=== PATIENT | female | born 1970 | race Caucasian/White ===

== ENCOUNTER → 2019-05-07 18:12 | Outpatient (CLI) | payer BC, SELFPAY ==
--- NOTE | ~2019-05-07 | MM_ITS ---
EXAMINATION: MM screening pio BI w alexander HISTORY: Screening mammogram TECHNIQUE: Craniocaudal and mediolateral oblique 3-D tomosynthesis images were obtained and synthetic 2-D images were generated. CAD analysis was submitted and interpreted. COMPARISON: No prior mammogram is available for comparison at this institution. BREAST PARENCHYMAL COMPOSITION: The breasts are heterogeneously dense, which may obscure small masses . FINDINGS: There is no evidence of suspicious mass, calcification, or architectural distortion to sugg est malignancy in either breast. There has been no suspicious interval change. IMPRESSION: 1. No mammographic evidence of malignancy. 2. Recommend routine screening mammography in one year. BI-RADS Category 1: Negative Reviewed, dictated and finalized at location A. PHERAL VASCULAR TECH
== END ==
PROVIDERS: Visit Provider Physician Assistant
DX: Z12.31 Encounter for screening mammogram for malignant neoplasm of breast (principal)
CPT/HCPCS: 77063; 77067

== ENCOUNTER 2019-08-24 11:15 | Outpatient (CLI) | payer BC, SELFPAY ==
--- NOTE | ~2019-08-24 | US_ITS ---
EXAMINATION: US breast LT complete HISTORY: Diffuse left breast pain TECHNIQUE: Complete left breast ultrasound is performed. FINDINGS: There is a 7 mm x 3 mm oval, circumscribed, parallel, hypoechoic mass at the 3:00 location 1 cm from the nipple with no posterior features or internal vascularity. A 7 mm x 3 mm mass with mickie lar sonographic features is present at the 10:00 location 4 cm from the nipple. There is also a 3 mm x 2 mm mass at the 10:00 location 3 cm from the nipple with similar sonographic features. No mammogra phic correlate is identified for the patient's reported left breast pain. IMPRESSION: Probably benign left breast masses without sonographic correlate identified for the patient's breast pain. Recommend continued clinical follow-up left breast ultrasound in six months. BI-RADS category 3, probably benign findings. Reviewed, dictated and finalized at location A.
== END 2019-08-24 11:16 | disposition home or self-care (01) ==
PROVIDERS: PCP Physician Assistant; Visit Provider Physician Assistant
DX: N64.4 Mastodynia (principal); R92.8 Other abnormal and inconclusive findings on diagnostic imaging of breast
CPT/HCPCS: 76641

== ENCOUNTER 2020-01-02 06:50 | Outpatient (NON) | payer BC, SELFPAY ==
[2020-01-02 18:04] LABS: SARS-CoV-2 RNA PCR Positive
== END 2020-01-02 06:51 ==
PROVIDERS: PCP Family Medicine; Visit Provider Family Medicine
DX: U07.1 COVID-19 (principal)
CPT/HCPCS: 87635; C9803; U0003

== ENCOUNTER → 2020-03-14 15:44 | Outpatient (CLI) | payer BC, SELFPAY ==
--- NOTE | ~2020-03-14 | US_ITS ---
EXAMINATION: US breast LT complete HISTORY: Six-month follow-up for probably benign sonographically detected left breast masses TECHNIQUE: Complete left breast ultrasound is performed including all four quadrants and the subareol ar breast. FINDINGS: There is a stable 6 mm x 2 mm oval, circumscribed, parallel, hypoechoic mass with no electrical panel builder ior features or internal vascularity at the 3:00 location 1 cm from the nipple. A stable 7 mm x 3 mm mass with similar sonographic features is present at the 10:00 location 4 cm from the nipple. Also se en is a stable 5 mm x 2 mm mass with similar sonographic features at the 10:00 location 3 cm from the nipple. IMPRESSION: Probably benign left breast masses. Follow-up left breast ultrasound in six months is recommended. BI-RADS category 3, probably benign findings. Reviewed, dictated and finalized at location A. N'S SOCCER COACH IMPRESSION: Probably benign left breast masses. Follow-up left breast ultrasound in six mon ths is recommended. BI-RADS category 3, probably benign findings.
== END ==
PROVIDERS: PCP Family Medicine; Visit Provider Physician Assistant
DX: N63.20 Unspecified lump in the left breast, unspecified quadrant (principal); R92.8 Other abnormal and inconclusive findings on diagnostic imaging of breast
CPT/HCPCS: 76641

== ENCOUNTER → 2020-10-17 14:02 | Outpatient (CLI) | payer BC, SELFPAY ==
--- NOTE | ~2020-10-17 | US_ITS ---
US breast LT complete 10/17/2020 14:23 Indication: Follow-up left breast masses Procedure: High-resolution Limited left breast ultrasound Comparison: Comparison to multiple prior studies sequentially, with oldest reviewed study dated 08/23. Findings: At 3:00, 1 cm from the nipple there is a stable oval hypoechoic mass measuring 5 mm without posterior features, parallel orientation. At 3:00, 1 cm from the nipple, there is an oval hypoechoic mass measuring 8 mm with echogenic hilum, possibly an intramammary lymph node. There is posterior sh adowing, parallel orientation and no internal vascularity. At 10:00, 4 cm from the nipple, there is a n oval hypoechoic mass measuring 6 mm, likely complicated cysts. Impression: 1: Stable left breast masses by ultrasound. BI-RADS CATEGORY 3-PROBABLY BENIGN FINDING RECOMMENDATION: Six-month follow-up bilateral mammogram and left breast ultrasound recommended. Reviewed, dictated and finalized at location A. Impression: 1: Stable left breast masses by ultrasound. BI-RADS CATEGORY 3-PROBABLY BENIGN FINDING RECOMMENDATION: Six-month follow-up bilateral mammogram and left breast ultraso und recommended.
== END ==
PROVIDERS: PCP Family Medicine; Visit Provider Physician Assistant
DX: R92.8 Other abnormal and inconclusive findings on diagnostic imaging of breast (principal)
CPT/HCPCS: 76641

== ENCOUNTER → 2021-01-09 13:19 | Outpatient (CLI) | payer BC, SELFPAY ==
--- NOTE | ~2021-01-09 | MM_ITS ---
EXAMINATION: MM screening pio BI w alexander HISTORY: Screening TECHNIQUE: Craniocaudal and mediolateral oblique 3-D tomosynthesis images were obtained and synthetic 2-D images were generated. CAD analysis was submitted and interpreted. COMPARISON: 05/07/2019 BREAST PARENCHYMAL COMPOSITION: Breast composed of scattered areas of fibroglandular density. FINDINGS: There are bilateral breast asymmetries which were not apparent on prior examination. There are no suspicious calcifications or architectural distortion. IMPRESSION: 1. New bilateral breast asymmetries. 2. Additional mammographic views and possible breast ultrasound are recommended. BI-RADS Category 0: Incomplete: Needs additional imaging evaluation. Reviewed, dictated and finalized at location A. IMPRESSION: 1. New bilateral breast asymmetries. 2. Additional mammographic views and possible breast ultrasound are recommended . BI-RADS Category 0: Incomplete: Needs additional imaging evaluation.
== END ==
PROVIDERS: PCP Physician Assistant; Visit Provider Physician Assistant
DX: Z12.31 Encounter for screening mammogram for malignant neoplasm of breast (principal); R92.8 Other abnormal and inconclusive findings on diagnostic imaging of breast
CPT/HCPCS: 77063; 77067

== ENCOUNTER → 2021-02-01 08:17 | Outpatient (CLI) | payer BC, SELFPAY ==
--- NOTE | ~2021-02-01 | MMUS_ITS ---
EXAMINATION: MM diagnostic pio BI w alexander, US breast RT limited HISTORY: Bilateral breast asymmetries on screening mammogram TECHNIQUE: Additional 3-D tomosynthesis images of the breasts were performed and synthetic 2-D images were generated. CAD analysis was submitted and interpreted. High resolution limited right breast ult rasound was performed. COMPARISON: 01/09/2021, 05/07/2019 FINDINGS: MAMMOGRAPHIC FINDINGS: Left breast: A low-density circumscribed mass at the 3:00 location 4 cm from the nipple has a stable appearance when compared to prior mammograms. There has been no suspicious interval change. Right breast: There appears to be a 9 mm obscured, equal density mass in the middle third of the cent ral, slightly outer breast at the 9:00 location 6 cm from the nipple. ULTRASOUND: There is a 7 mm x 3 mm oval, circumscribed, parallel, hypoechoic mass with no posterior features or i nternal vascularity at the 9:00 location 6 cm from the nipple. IMPRESSION: 1. Indeterminate right breast mass. 2. Ultrasound-guided biopsy is recommended. BI-RADS category 4, suspicious findings. Reviewed, dictated and finalized at location A. OL CAFETERIA COOK HEAD IMPRESSION: 1. Indeterminate right breast mass. 2. Ultrasound-guided biopsy is recommended. BI-RADS category 4, suspicious findings.
== END ==
PROVIDERS: PCP Physician Assistant; Visit Provider Physician Assistant
DX: N64.89 Other specified disorders of breast (principal); R92.8 Other abnormal and inconclusive findings on diagnostic imaging of breast
CPT/HCPCS: 76642; 77062; 77066; G0279

== ENCOUNTER 2021-03-04 21:13 | Emergency (ER) | payer BC, SELFPAY ==
[2021-03-04 21:32] VITALS: BP 120/86; PULSE 71; RESP 17; TEMP 36.7; O2SAT 99
--- NOTE | 2021-03-04 23:00 | PC.NURSE ---
informed this RN pt was leaving. seen ambulating out of ED c steady, even, unassisted gait.
== END 2021-03-04 23:26 | disposition left against medical advice (07) ==
LOC: ANHED 23:09
PROVIDERS: PCP Physician Assistant
DX: R10.9 Unspecified abdominal pain (principal)
CPT/HCPCS: 99199

== ENCOUNTER → 2021-03-23 14:06 | Outpatient (CLI) | payer BC, SELFPAY ==
--- NOTE | ~2021-03-23 | US_ITS ---
EXAMINATION: US pelvic complete w TV DATE: 03/23/2021 14:37 INDICATION: Pelvic pressure. TECHNIQUE: Multiple transabdominal and transvaginal sonographic images of the pelvis were obtained. COMPARISON: None. FINDINGS: TRANSABDOMINAL ULTRASOUND: The uterus measures 8.0 x 3.7 x 5.3 cm. There is no free fluid in the pelvis. TRANSVAGINAL ULTRASOUND: The endometrial complex measures 7 mm in thickness. There is a 1.6 cm intramural fibroid anteriorly. The right ovary measures 1.7 x 0.8 x 2.0 cm. The left ovary measures 2.9 x 1.6 x 2.1 cm. There is nor mal vascular flow in the ovaries. IMPRESSION: 1. Uterine fibroid. Reviewed, dictated and finalized at location B. ER/PULLER IMPRESSION: 1. Uterine fibroid.
== END ==
PROVIDERS: Visit Provider Physician Assistant
DX: R10.2 Pelvic and perineal pain (principal); D25.9 Leiomyoma of uterus, unspecified
CPT/HCPCS: 76830; 76856

== ENCOUNTER → 2021-04-22 00:03 | Outpatient (CLI) | payer BC, SELFPAY ==
[2021-04-22 11:57] LABS: SARS-CoV-2 RNA PCR Negative
== END ==
PROVIDERS: Physician Assistant; PCP Physician Assistant; Visit Provider Internal Medicine Gastroenterology
DX: Z01.812 Encounter for preprocedural laboratory examination (principal); Z20.822 Contact with and (suspected) exposure to COVID-19
CPT/HCPCS: C9803; U0003; U0005

== ENCOUNTER 2021-04-26 02:30 | Day surgery (SDC) | payer BC, SELFPAY ==
[2021-04-21 13:43] VITALS: BMI 22.8
[2021-04-26 08:40] VITALS: BP 125/73; PULSE 68; RESP 18; TEMP 36.7; O2SAT 100; BMI 22.8
[2021-04-26] MEDS: LACTATED RINGERS 1,000 ML 150 ML IV CONT (09:01)
--- NOTE | 2021-04-26 09:04 | WPDANESEPPF ---
Anes - Initial Pre Proc Eval Procedure: Operation Date: 04/26/21 10:00 Proposed Procedures p Screening Colonoscopy - Usman Yang MD Date/Time: 04/26/21 09:04 Surgeon: Usman Yang MD Pre Op Diagnosis: neoplasm screening Patient Data Age: 51 Gender: F Height: 1.7 m Weight: 66.3 kg Last Vital Signs Temp 36.7 C 04/26/21 08:40 Pulse 68 04/26/21 08:40 Resp 18 04/26/21 08:40 BP 125/73 04/26/21 08:40 Pulse Ox 100 04/26/21 08:40 Allergies Allergy/AdvReac Type Severity Reaction Status Date / Time prochlorperazine Allergy Unknown facial Verified 04/26/21 08:49 joint discomfort promethazine Allergy Unknown facial Verified 04/26/21 08:49 joint discomfort Home Medications Medication Instructions Recorded Confirmed Type lisinopril 10 mg tablet 10 mg PO BID #180 tablet 11/10/20 04/21/21 Rx diltiazem HCl 180 mg capsule,24 180 mg PO DAILY #90 cap 03/09/21 04/21/21 Rx hr,extended release paroxetine HCl 10 mg PO HS 04/21/21 04/21/21 History Patient hx anesthesia problems: none Family hx anesthesia problems: none Results Review: All pre-operative results and documents have been reviewed as part of the pre-operative evaluation. [facility] Past Medical History Medical History Hypertension Preeclampsia Surgical History Surgical History Delivery by section Family History Family History Father Pacemaker Mother Hypertension Grandparent Breast cancer Social History Social History Smoking status: Never smoker Alcohol intake: never Substance use: never Substance use type: does not use Living arrangements: with friend(s) Spiritual care concerns: No Anes - Eval Final PreProcedure Day of Procedure 04/26/21 09:04 Patient weight: normal Heart: regular rate and rhythm Lungs: clear to auscultation Airway: Mallampati scale class II Neurological: alert and oriented Last oral intake: >/= 8 hours ASA classification: II Emergent: no Anesthetic plan: proceed Anesthesia type and monitoring: general GIVS and standard monitoring Results Review: All pre-operative results and documents have been reviewed as part of the pre-operative evaluation. Informed Consent: The patient's anesthetic plan and its attendant risks and benefits were discussed with the patient/family/POA. Questions were solicited and answers provided to the satisfaction of the patient/family/POA.
--- NOTE | 2021-04-26 09:40 | PM.HPGS ---
History of Present Illness History of Present Illness Consent: Risks, benefits, and alternatives have been discussed and questions answered. Patient agrees to proceed with procedure. Chief complaint: neoplasm screening Narrative: Juany Earl is a 51 year old female referred for colon cancer screening. This is her 1st colonoscopy Review of Systems Review of Systems: All systems reviewed & are unremarkable except as noted in HPI and below PMFSH Past Medical History Medical History (Updated 04/26/21 @ 09:40 by Usman Yang MD) Hypertension Preeclampsia Surgical History Surgical History Delivery by section Family History Family History Father Pacemaker Mother Hypertension Grandparent Breast cancer Social History Social History Smoking status: Never smoker Alcohol intake: never Substance use: never Substance use type: does not use Living arrangements: with friend(s) Spiritual care concerns: No Meds Home Medications and Allergies Home Medications Medication Instructions Recorded Confirmed Type lisinopril 10 mg tablet 10 mg PO BID #180 tablet 11/10/20 04/21/21 Rx diltiazem HCl 180 mg capsule,24 180 mg PO DAILY #90 cap 03/09/21 04/21/21 Rx hr,extended release paroxetine HCl 10 mg PO HS 04/21/21 04/21/21 History Allergies Allergy/AdvReac Type Severity Reaction Status Date / Time prochlorperazine Allergy Unknown facial Verified 04/26/21 08:49 joint discomfort promethazine Allergy Unknown facial Verified 04/26/21 08:49 joint discomfort Vital Signs Vital Signs - 24 hr 04/26/21 08:40 Temperature 36.7 C Pulse Rate 68 Respiratory Rate 18 Blood Pressure 125/73 Pulse Oximetry 100 Exam Resp: Auscultation: clear to auscultation bilaterally Cardio: Rate: regular rate Rhythm: regular rhythm GI: GI Palp: Yes Soft to palpation and No Tenderness to palpation present (GI) Assessment and Plan Assessment and plan (1) Colon cancer screening: Code(s): Z12.11 - Encounter for screening for malignant neoplasm of colon Status: Acute Assessment and Plan: Colonoscopy with possible biopsy or polypectomy or cautery or injection of substances.
[2021-04-26 10:16] VITALS: BP 92/65; PULSE 56; RESP 15; O2SAT 100
[2021-04-26 10:26] VITALS: BP 118/83; PULSE 56; RESP 15; O2SAT 100
[2021-04-26 10:33] VITALS: BP 129/92; PULSE 54; RESP 15; O2SAT 100
== END 2021-04-26 10:47 | disposition home or self-care (01) ==
PROVIDERS: PCP Physician Assistant; Visit Provider Internal Medicine Gastroenterology
PROC: 0DJD8ZZ Inspection of Lower Intestinal Tract, Via Natural or Artificial Opening Endoscopic (ICD-10-PCS; CPT 45378; principal; 2021-04-26 10:00)
DX: Z12.11 Encounter for screening for malignant neoplasm of colon (principal); K57.30 Diverticulosis of large intestine without perforation or abscess without bleeding; I10 Essential (primary) hypertension
CPT/HCPCS: 45378; J2704; J7120

== ENCOUNTER 2021-12-29 11:55 | Emergency (ER) | payer BC, SELFPAY ==
--- NOTE | ~2021-12-29 | XR_ITS ---
EXAMINATION: XR finger 3rd RT min 2V DATE: 12/29/2021 12:15 INDICATION: Smashing injury to the right third digit with pain at the distal phalanx TECHNIQUE: Dorsal palmar, lateral and 2 oblique views of the right third digit were obtained COMPARISON: None FINDINGS: Alignment is normal. No fracture. Joint spaces are normal. Soft tissue swelling at the distal tip of the right third finger. IMPRESSION: 1. No osseous abnormality. Reviewed, dictated and finalized at location A. IMPRESSION: 1. No osseous abnormality.
[2021-12-29 12:04] VITALS: BP 116/74; PULSE 80; RESP 18; TEMP 36.5; O2SAT 100
--- NOTE | 2021-12-29 12:34 | ED.UPPEXIN ---
HPI - Extremity Injury (Upper) General Chief Complaint: Extremity Injury, Upper Stated Complaint: Finger Rt Hand Pain Time Seen by Provider: 12/29/21 12:34 Source: patient Mode of arrival: ambulatory Limitations: no limitations History of Present Illness HPI narrative: 51-year-old female presented for complaints of right middle finger injury that occurred 10 days ago. She states she scraped the tip of the finger on concrete, and continues to have pain at the site and states 'it is not healed yet.' She has been applying peroxide and triple antibiotic ointment. She endorses significant pain when she touches or strikes her finger on an object. Sensation and range of motion is intact. Denies numbness, tingling or weakness, denies redness, swelling, pus or fever. Related Data Home Medications Medication Instructions Recorded Confirmed paroxetine HCl 20 mg tablet 10 mg PO HS 04/21/21 12/29/21 Allergies Allergy/AdvReac Type Severity Reaction Status Date / Time prochlorperazine Allergy Unknown facial Verified 04/26/21 08:49 joint discomfort promethazine Allergy Unknown facial Verified 04/26/21 08:49 joint discomfort Review of Systems Review of Systems: CONSTITUTIONAL: Denies body aches, fever, chills EYES: Denies visual changes ENT: Denies rhinorrhea, congestion CARDIOVASCULAR: Denies chest pain, palpitations, or edema. RESPIRATORY: Denies cough or dyspnea. SKIN: reports finger wound MUSCULOSKELETAL: Denies back pain, joint pain, or myalgia. NEUROLOGIC: Denies headache, numbness, tingling, or weakness. All systems reviewed & are unremarkable except as noted in HPI and below PMFSH Past Medical History Medical History Hypertension Preeclampsia Surgical History Surgical History Delivery by section Family History Family History Father Pacemaker Mother Hypertension Grandparent Breast cancer Social History Social History Smoking status: Never smoker Alcohol intake: never Substance use: never Substance use type: does not use Spiritual care concerns: No Comments At time of signature, I have reviewed and agree with nursing past medical, surgical, social and family history unless otherwise noted. Please see nursing chart for further information. There is no relevant family history pertinent to the presenting complaint Exam Narrative: GENERAL: Well-appearing CHEST: Speaks in full sentences. No respiratory distress. HEART: Regular rate and rhythm. Normal and equal peripheral pulses. EXTREMITIES: Right 3rd finger with abrasion to distal aspect of nail, clear crust to site, no bleeding or purulent drainage, no bruising or swelling; tender to palpation at DIP. Endorses pain with movement to DIP. Right hand has normal strength and sensation, normal range of motion. No apparent FB. No obvious deformity; alignment normal, pulse palpable and equal bilaterally, skin warm, dry, pink. Capillary refill less than 3 seconds. SKIN: Warm, dry, no rash. NEURO: Alert and oriented x3. PSYCH: Normal affect Course Course Emergency Course: Patient is aware of diagnosis, understands and agrees to treatment plan. Anticipatory guidance given. Patient agrees to follow-up as directed and is aware of reasons to seek care at the emergency department. Portions of this record may have been created with voice recognition software Level of Care: Express Care Visit Vital Signs Vital signs: Vital Signs Temperature 97.7 F 12/29/21 12:04 Pulse Rate 80 12/29/21 12:04 Respiratory Rate 18 12/29/21 12:04 Blood Pressure 116/74 12/29/21 12:04 Pulse Oximetry 100 12/29/21 12:04 Oxygen Delivery Room Air 12/29/21 12:04 Temperature 97.7 F 12/29/21
== END 2021-12-29 12:48 | disposition home or self-care (01) ==
PROVIDERS: Emergency Provider Nurse Practitioner Family; PCP Physician Assistant
DX: S60.412A Abrasion of right middle finger, initial encounter (principal); W22.8XXA Striking against or struck by other objects, initial encounter; I10 Essential (primary) hypertension
CPT/HCPCS: 29130; 73140; 99213; G0463

== ENCOUNTER → 2022-04-03 12:33 | Outpatient (CLI) | payer BC, SELFPAY ==
--- NOTE | ~2022-04-03 | MM_ITS ---
EXAMINATION: MM screening pio BI w alexander HISTORY: Screening mammogram TECHNIQUE: Craniocaudal and mediolateral oblique 3-D tomosynthesis images were obtained and synthetic 2-D images were generated. CAD analysis was submitted and interpreted. COMPARISON: 02/01/2021 diagnostic bilateral mammogram and limited right breast ultrasound examination 01/09/2021 bilateral screening mammogram 10/17/2020, 03/2020, 08/24/2019 left breast ultrasound examination 05/07/2019 bilateral screening mammogram BREAST PARENCHYMAL COMPOSITION: There are scattered areas of fibroglandular density. FINDINGS: Biopsy marker in the posterior outer mid right breast. There is no evidence of suspicious m ass, calcification, or architectural distortion to suggest malignancy in either breast. There has bee n no suspicious interval change. IMPRESSION: 1. No mammographic evidence of malignancy. 2. Recommend routine screening mammography in one year. BI-RADS Category 1: Negative Reviewed, dictated and finalized at location A. OR GL ACCOUNTANT
== END ==
PROVIDERS: PCP Nurse Practitioner; Visit Provider Nurse Practitioner
DX: Z12.31 Encounter for screening mammogram for malignant neoplasm of breast (principal)
CPT/HCPCS: 77063; 77067

== ENCOUNTER 2023-05-27 01:03 | Emergency (ER) | payer BC, SELFPAY ==
--- NOTE | ~2023-05-27 | CT_ITS ---
CT of the Abdomen and Pelvis: Indication: Abdominal pain Technique: 2.5 mm axial scans were obtained through the abdomen and pelvis following intravenous adm inistration of 100 cc of Omnipaque 350. Dose reduction technique was used on this scan by utilizing a utomated exposure control and iterative reconstruction technique. The dose-length product (DLP) was 5 22.93 mGy-cm. Findings: Scans through the lung bases are unremarkable. There is minimal central intrahepatic biliary dilatation. The spleen, pancreas, adrenals and kidneys are within normal limits. Probable tiny gallstone versus tiny gallbladder wall polyp. No evidence of aortic aneurysm. No lymphadenopathy. No bowel obstruction or bowel wall thickening. There is no evidence to suggest acute appendicitis. Mo derate to large amount of stool. Images through the pelvis were performed. Urinary bladder unremarkable. No adnexal mass seen. No asci abby. Impression: Mild intrahepatic biliary dilatation, of uncertain significance/etiology. Correlate clinically and wi th relevant labwork. Tiny gallstone versus gallbladder wall polyp. Possible constipation. Reviewed, dictated and finalized at [facility]. Impression: Mild intrahepatic biliary dilatation, of uncertain significance/etiology. Corre late clinically and with relevant labwork. Tiny gallstone versus gallbladder wall polyp. Possible constipation.
[2023-05-27 01:08] VITALS: BP 110/55; PULSE 56; RESP 19; TEMP 36.2; O2SAT 100
[2023-05-27 01:41] VITALS: BP 129/78; PULSE 57; RESP 12; TEMP 36.6; O2SAT 100
--- NOTE | 2023-05-27 01:43 | ED.GENADULT ---
HPI - General Adult General Chief complaint: Abdominal Pain Stated complaint: abd pain Time Seen by Provider: 05/27/23 01:32 History of Present Illness HPI narrative: Patient 53-year-old female presents emergency department with chief complaint of abdominal pain that radiates to her back. Patient reports that having pain throughout the day and reports that she was laying on the floor in her bathroom because the pain would not get better patient reports had nausea but no vomiting and ports no diarrhea. Patient states the pain is a cramping like pain reports that she has prior history of diverticulitis but this is to be worse than her last episode. Related Data Home Medications Medication Instructions Recorded Confirmed paroxetine HCl 20 mg tablet 10 mg PO HS 04/21/21 12/29/21 Allergies Allergy/AdvReac Type Severity Reaction Status Date / Time prochlorperazine Allergy Unknown facial Verified 05/27/23 01:10 joint discomfort promethazine Allergy Unknown facial Verified 05/27/23 01:10 joint discomfort Review of Systems Review of Systems: A 10 system review of systems was completed on the patient and is negative except for what is stated in the HPI. Nursing and ancillary documentation was reviewed. [facility] Past Medical History Medical History (Updated 05/27/23 @ 03:24 by Ryland Sumner MD) Hypertension Preeclampsia Surgical History Surgical History Delivery by section Family History Family History Father Pacemaker Mother Hypertension Grandparent Breast cancer Social History Social History Smoking status: Never smoker Alcohol intake: never Substance use: never Substance use type: does not use Living arrangements: with friend(s) Spiritual care concerns: No Exam Narrative: GENERAL: Well-appearing, well-nourished, and in no acute distress. HEAD: Normocephalic, atraumatic. EYES: PERRLA and EOMI. ENT: Nares clear, no rhinorrhea or epistaxis. Mucous membranes moist. NECK: Supple. CHEST: Clear to auscultation. No respiratory distress. HEART: Regular rate and rhythm. No murmur heard. Normal peripheral pulses. ABDOMEN: Soft, mild tenderness palpation, nondistended, normal active bowel sounds. EXTREMITIES: Normal range of motion. No edema. SKIN: Warm, dry, no rash. NEURO: No focal deficits. Alert and oriented x3. PSYCH: Normal mood and affect. Course Vital Signs Vital signs: Vital Signs Temperature 36.2 C L 05/27/23 01:08 Pulse Rate 56 L 05/27/23 01:08 Respiratory Rate 19 05/27/23 01:08 Blood Pressure 110/55 L 05/27/23 01:08 Pulse Oximetry 100 05/27/23 01:08 Oxygen Delivery Room Air 05/27/23 01:08 Temperature 36.6 C 05/27/23 01:41 Pulse Rate 83 05/27/23 03:23 Respiratory Rate 16 05/27/23 03:23 Blood Pressure 116/67 05/27/23 03:23 Pulse Oximetry 100 05/27/23 03:23 Oxygen Delivery Room Air 05/27/23 01:08 Medical Decision Making MDM Narrative Medical decision making narrative: Differential diagnosis includes diverticulitis, colitis, appendicitis, Laboratory studies were obtained which showed a CBC with normal white blood cell count electrolytes are within normal limits AST and ALT are slightly elevated but bilirubin is normal lipase is normal urinalysis showed no evidence UTI CT scan of the abdomen pelvis showed mild wall thickening some 0.1 cm segment of distal sigmoid colon concerning for focal infectious versus inflammatory colitis The patient was started on Cipro and Flagyl and the patient will be discharged home Vital Signs Vital Signs: Vital Signs Temperature 36.2 C L 05/27/23 01:08 Pulse Rate 56 L 05/27/23 01:08 Respiratory Rate 19 05/27/23 01:08 Blood Pressure 110/55 L 05/27/23 01
[2023-05-27 01:48] LABS: Basophils Absolute Auto 0.1 K/mm3 (0.0-0.1); Basophils Percent Auto 0.9 % (0.2-1.2); Eosinophils Absolute Auto 0.1 K/mm3 (0-0.3); Eosinophils Percent Auto 0.9 % (0-4.4); Hematocrit 40.4 % (37.0-47.0); Hemoglobin 12.9 g/dL (12.0-15.0); Immature Granulocyte Absolute 0.02 K/mm3 (0.00-0.031); Immature Granulocyte Percent A 0.2 % (0-0.5); Lymphocytes Absolute Auto 1.26 K/mm3 (0.9-3.2); Lymphocytes Percent Auto 15.3 % (18.3-44.2); Mean Corpuscular HGB Conc 31.9 g/dl (32-36); Mean Corpuscular Hemoglobin 29.7 pg (26-34); Mean Corpuscular Volume 93.1 fl (80-100); Mean Platelet Volume 10.4 fl (7.4-10.4); Monocytes Absolute Auto 0.7 K/mm3 (0.1-0.6); Neutrophils Absolute Auto 6.1 K/mm3 (1.3-6.7); Neutrophils Percent Auto 74.7 % (45.5-73.1); Platelet Count Result 270 k/mm3 (150-375); Red Blood Count 4.34 M/mm3 (4.2-5.4); Red Cell Distribution Width 13.2 % (11.5-14.5); White Blood Count 8.2 K/mm3 (4.5-10.0)
[2023-05-27] MEDS: ONDANSETRON INJ 4 MG/2 ML VIAL IV PUSH (01:48)
[2023-05-27] MEDS: SODIUM CHLORIDE 0.9% IV 1,000 ML 999 ML IV CONT (01:48)
[2023-05-27] MEDS: MORPHINE SULFATE (*CRX) 4 MG/ML INJ IV PUSH (01:49)
[2023-05-27 01:57] LABS: Appearance Urine Cloudy (Clear); Bacteria Urine 1+ /hpf; Bilirubin Urine Negative (Negative); Blood Urine Negative (Negative); Color Urine Yellow (Yellow); Glucose Urine UA Negative (Negative); Ketones Urine Negative (Negative); Leukocyte Esterase Ur Negative LEU/UL (Negative); Nitrate Urine Negative (Negative); Non Pathogenic Casts 0-2; Protein Urine Negative (Negative); RBC Urine 0-2 /hpf (0-2); Specific Grav Ur 1.024 (1.001-1.035); Squamous Epithelial Cell Urine Few /hpf (Few); WBC Urine 0-5 /hpf (0-3)
[2023-05-27 02:04] LABS: Alanine Aminotransferase 77 U/L (6-35); Albumin Level 4.5 g/dL (3.5-5.1); Alkaline Phosphatase 106 U/L (38-126); Anion Gap 4 mmol/L (8-16); Aspartate Amino Transferase 138 U/L (14-36); Bilirubin,Total 0.7 mg/dL (0.2-1.3); Blood Urea Nitrogen 23 mg/dL (7-17); Calcium 9.6 mg/dL (8.4-10.2); Carbon Dioxide 33 mmol/L (22-30); Chloride 101 mmol/L (98-107); Estimated CRCL calculation 59 ml/min; Estimated Glomerular Filt Rate > 60; Glucose 129 mg/dL (65-110); Lipase 70 U/L (23-300); Sodium 138 mmol/L (137-145)
[2023-05-27 02:08] LABS: Add Urine Microscopic? YES
[2023-05-27 03:23] VITALS: BP 116/67; PULSE 83; RESP 16; O2SAT 100
[2023-05-27] MEDS: CIPROFLOXACIN 500 MG TAB PO (03:37)
[2023-05-27] MEDS: metroNIDAZOLE 500 MG TABLET PO (03:37)
== END 2023-05-27 03:40 | disposition home or self-care (01) ==
PROVIDERS: Emergency Provider Emergency Medicine; PCP Nurse Practitioner
DX: K52.9 Noninfective gastroenteritis and colitis, unspecified (principal); I10 Essential (primary) hypertension
CPT/HCPCS: 36415; 74177; 80053; 81025; 83690; 85025; 96361; 96374; 96375; 99284; A9270; J2270; J2405; J7030; Q9967

== ENCOUNTER 2023-07-30 15:27 | Outpatient (CLI) | payer BC, SELFPAY ==
--- NOTE | ~2023-07-30 | MM_ITS ---
EXAMINATION: MM screening [facility] BI w alexander HISTORY: Screening TECHNIQUE: Craniocaudal and mediolateral oblique 3-D tomosynthesis images were obtained and synthetic 2-D images were generated. CAD analysis was submitted and interpreted. COMPARISON: Comparison to multiple prior studies sequentially, with oldest reviewed study dated 05/07. BREAST PARENCHYMAL COMPOSITION: Not dense: There are scattered areas of fibroglandular density. FINDINGS: There is no evidence of suspicious mass, calcification, or architectural distortion to sugg est malignancy in either breast. There has been no suspicious interval change. IMPRESSION: 1. No mammographic evidence of malignancy. 2. Recommend routine screening mammography in one year. BI-RADS Category 1: Negative Reviewed, dictated and finalized at location A.
== END 2023-07-30 15:28 ==
LOC: MICIMG 15:29
PROVIDERS: PCP Nurse Practitioner; Visit Provider Nurse Practitioner
DX: Z12.31 Encounter for screening mammogram for malignant neoplasm of breast (principal)
CPT/HCPCS: 77063; 77067